=== PATIENT | female | born 1975 | race Caucasian/White ===

== ENCOUNTER 2017-03-08 15:30 | Emergency (ER) | payer SELFPAY ==
[~2017-03-08] VITALS: Ht 175.3 cm; Wt 180.0 kg
[2017-03-08 15:41] VITALS: BP 99/59; PULSE 107; RESP 16; O2SAT 98
[2017-03-08 16:22] LABS: BASOPHILS % (AUTO) 0.2 % (0-3); EOSINOPHILS % (AUTO) 0.3 % (0-5); MONOCYTES % (AUTO) 11.9 % (4-12); Mean Corpuscular Hemoglobin 28.9 pg (27.0-35.0); Mean Corpuscular Volume 86.4 fL (81-100); NEUTROPHILS % (AUTO) 78.6 % (40-74); Platelet Count 223 bil/L (150-400)
[2017-03-08 16:26] VITALS: BP 100/60; PULSE 98; RESP 22; O2SAT 98
[2017-03-08 16:41] LABS: Magnesium 1.7 mg/dL (1.6-2.6)
--- NOTE | 2017-03-08 16:50 | ED.REPORT ---
HPI-Abd Pain F 40 and Over Date of Service March 08, 2017 ED Provider: Iván Chaidez MD The patient is a 41 year old female who presents to the ED via EMS due to 3 days of right back pain. Associated symptoms include abdominal cramping, headache, fever, nausea, and chills. She denies vomiting. She took ibuprofen about 9 hrs ago. Pt is currently on her period. Nursing Notes Stated Complaint: HEADACHE,ABDOMINAL PAIN Chief Complaint: Female Abdominal Pain Nursing Notes Reviewed: Yes Allergies: Coded Allergies: Macrolide Antibiotics (Verified Allergy, Unknown, 07/02/14) Uncoded Allergies: EES 400 (Allergy, Unknown, 07/02/14) Scheduled Sulfamethoxazole/Trimeth 800-160 mg (Bactrim DS) 1 Each Tablet 1 TABLET PO BID General Time Seen by MD: 16:46 Chief Complaint Abdominal pain Hx Obtained From: Patient Arrived By: Ambulance Sudden in Onset?: Yes Onset Occurred: 3 days ago Symptom Duration: Since onset Location: : Back Quality: Painful Severity: Current: Moderate Recent Healthcare: No recent doctor visit, No recent hospitalization Similar Sx Previous: No Past Medical History Past Medical History denies Past Surgical History Reports: Cholecystectomy Smoking History Current Every Day Smoker Social History substance abuse Alcohol Use: 1-3 per week Other Social History: Local resident Ambulatory Status Independent Review of Systems Constitutional: Reports: Chills, Fever GI: Reports: Abdominal pain, Nausea, Denies: Vomiting Musculoskeletal: Reports: Back pain (right sided ) Complete sys rev & neg: except as marked. Neurologic: Reports: Headache Physical Exam Vital Signs Vital Signs (First) Date Time Temp Pulse Resp B/P Pulse Ox O2 Delivery O2 Flow Rate FiO2 03/08/17 15:41 36.9 107 16 99/59 98 Room Air Initial VS: Reviewed General/Constitutional: Awake, Alert, Cooperative Distress / Hydration: Positive: Distress mild Respiratory / Chest: Atraumatic, Breath sounds NL, No respiratory distress Cardiovascular: Regular rhythm, No gallop, No murmurs, No rubs Heart Rate / Rhythm: Positive: Tachycardia Tenderness/Guarding/Rebound: Positive: Tender RUQ... Head / Eyes: Normocephalic, PERRL Skin: Warm, Dry Upper Extremity / MS: Full range of motion, No deformity Lower Extremity / Pelvis / MS: Full range of motion, No deformity Interpretation & Diagnostics Interpretation & Diagnostics: U preg neg u tox amphetamines Lab Results Interpretation Result Diagram: 03/08/17 1607 03/08/17 1607 Test 03/08/17 16:07 03/08/17 17:50 White Blood Count 12.6th/mm3 (3.8-10.1) Red Blood Count 4.25mil/mm3 (3.90-5.20) Hemoglobin 12.3g/dL (12.0-15.6) Hematocrit 36.7% (35.0-46.0) Mean Corpuscular Volume 86.4fL (81-100) Mean Corpuscular Hemoglobin 28.9pg (27.0-35.0) Mean Corpuscular Hemoglobin Concent 33.5% (32.0-37.0) Red Cell Distribution Width 13.7% (12.3-15.4) Platelet Count 223bil/L (150-400) Neutrophils (%) (Auto) 78.6% (40-74) Lymphocytes (%) (Auto) 8.6% (14-46) Monocytes (%) (Auto) 11.9% (4-12) Eosinophils (%) (Auto) 0.3% (0-5) Basophils (%) (Auto) 0.2% (0-3) Sodium Level 133mEq/L (134-144) Potassium Level 3.4mEq/L (3.5-5.2) Chloride Level 98mEq/L (97-108) Carbon Dioxide Level 20mmol/L (18-29) Blood Urea Nitrogen 8mg/dL (6-24) Creatinine 0.73mg/dL (0.57-1.00) Estimat Glomerular Filtration Rate 125mL/min (>59) Glucose Level 118mg/dL (60-99) Lactic Acid Level 1.1mmol/L (0.4-2.0) Calcium Level 8.9mg/dL (8.5-10.1) Magnesium Level 1.7mg/dL (1.6-2.6) Total Bilirubin 0.9mg/dL (0.0-1.2) Aspartate Amino Transf (AST/SGOT) 86U/L (0-50) Alanine Aminotransferase (ALT/SGPT) 100U/L (0-32) Alkaline Phosphatase 169U/L (25-150) Total Protein 7.3g/dL (6.4-8.4) Albumin 2.9g/dL (3.4-5.0) Lipase 12U/L (13-60) Hold Law Top Tube Received (Received) Urine Color Yellow (YELLOW) Urine Appearance Hazy (CLEAR,HAZY) Urine pH 6.0 (5.0-8.0) Urine Specific [place] 1.010 (1.003-1.035) Urine Protein Tracemg/dL (NEG,TRACE) Urine Glucose (UA) Negativemg/dL (NEGATIVE) Urine Ketones Negativemg/dL (NEGATIVE) Urine Occult Blood Moderate (NEGATIVE) Urine Nitrite Negative (NEGATIVE) Urine Bilirubin Negative (NEGATIVE) Urine Urobilinogen Normalmg/dL (NORMAL) Urine Leukocyte Esterase Large (NEGATIVE) Urine RBC 3-10/hpf (0-2) Urine WBC >50/hpf (0-5) Urine Epithelial Cells Few/hpf (NONE-MOD) Urine Crystals None seen (NONE SEEN) Urine Bacteria Many/hpf (NONE-FEW) Urine Hyaline Casts None/lpf (NONE) Urine Granular Casts None seen (NONE SEEN) Urine Waxy Casts None seen (NONE SEEN) Urine Red Blood Cell Casts None seen (NONE SEEN) Urine White Blood Cell Casts None seen (NONE SEEN) Urine Mucus None seen (None Seen) Urine Trichomonas None seen (NONE SEEN) Urine Yeast None (NONE SEEN) Urinalysis Comment None Urine Culture Reflexed Indicated X-Ray Chest Interpretation Chest Xray Interpretation: IMPRESSION: Mild left lung base pneumonia. Dictated by: Javy Gomez M.D. on 03/08/2017 at 17:23 Approved by: Javy Gomez M.D. on 03/08/2017 at 17:23 View: Portable Interpretation / Wet Read by: Interpret - Radiologist CT Abd / Pelvis Interpretation IMPRESSION: 1. Multifocal right pyelonephritis. 2. Normal appendix. Dictated by: Javy Gomez M.D. on 03/08/2017 at 20:58 Approved by: Javy Gomez M.D. on 03/08/2017 at 21:00 Study type: Abdominal CT no contrast Interpretation / Wet Read by: Interpret - Radiologist Re-Eval/Medical Decision Re-Evaluation/Progress #1: Time of Eval: 20:06 Re-Evaluation/Progress Note: Pt rechecked. Chest x-ray shows pneumonia and UA shows UTI. Plan for CT scan and will start on antibiotics. Re-Evaluation/Progress #2: Time of Eval: 21:10 Re-Evaluation/Progress Note: Pt rechecked. Informed pt of diagnosis and plan for antibiotics and pain medication. Pt understands and agrees with plan. F/U and RTER warnings given. All questions addressed. Counseled Regarding: Diagnosis, Lab results, Need for follow-up, When/why to return to ED Discharge & Departure Primary Impression: Pyelonephritis Additional Impression: Pneumonia Pneumonia type: due to unspecified organism Laterality: unspecified laterality Lung location: unspecified part of lung Qualified Code: J18.9 - Pneumonia, unspecified organism Disposition: Home Discharge Condition All VS Reviewed: Yes Condition: Stable Patient Instructions: Urinary Tract Infection in Women (ED) Additional Instructions: Thank you for entrusting us with your care today. Emergency Department evaluation included interview, examination, chest x-ray, urine analysis, and CT scan. Your chest x-ray shows pneumonia and your urine analysis shows a urinary tract infection. You also have a right kidney infection. We have started you on antibiotics. supervisor contingents these prescriptions and start them as directed. I am sending you home with the antibiotic Bactrim. Take this 2x/day for 9 days. I am also giving you some pain and nausea medication. Follow up with the residency clinic in the next week. Do not hesitate to return to the Emergency Department for any new or worsening symptoms. I hope you feel better soon! Referrals: [facility] (PCP) [facility] Scrrita Attestation Portion of this note were transcribed by Maggi Eugene. I, , personally performed the history, physical exam, and medical decision-making: I reviewed and confirmed the accuracy for the information in the transcribed note. Signed by: karissa Vance, 03/08/17 1900 copies to: NOPKIMI; [facility] Iván Chaidez MD March 08, 2017 16:49 Maggi Eugene March 08, 2017 17:34
--- NOTE | 2017-03-08 17:25 | DRSVH ---
PROCEDURE: X-RAY CHEST ONE VIEW, PORTABLE ([id number]) INDICATIONS: fever cough TECHNIQUE: One view of the chest was acquired. COMPARISON: [facility], CR, CHEST 2VW, 11/15/2011, 23:50. FINDINGS: Surgical changes and devices: None. Lungs and pleura: No pleural effusions or pneumothorax. Mild patchy opacity at the left lung base. Mediastinum: Mediastinal contours appear normal. Heart size is normal. Bones and chest wall: No suspicious bony lesions. Overlying soft tissues appear unremarkable. IMPRESSION: Mild left lung base pneumonia. Dictated by: Javy Gomez M.D. on 03/08/2017 at 17:23 Approved by: Javy Gomez M.D. on 03/08/2017 at 17:23
[2017-03-08] MEDS ORDERED: 0.9% Sodium Chloride 1,000 ML IV ONE ×3 (17:35→20:10)
[2017-03-08 18:03] VITALS: BP 107/64; PULSE 94; RESP 20; O2SAT 98
[2017-03-08 18:44] LABS: APPEARANCE,URINE HAZY (CLEAR,HAZY); COLOR,URINE YELLOW (YELLOW); OCCULT BLOOD,URINE MODERATE (NEGATIVE); UROBILINOGEN,URINE NORMAL (NORMAL)
[2017-03-08] MEDS ORDERED: Ondansetron 2 mg/mL 2 mL Inj IVPUSH ONE (20:10)
[2017-03-08] MEDS ORDERED: HYDROmorphone 0.5 mg/0.5 mL iSecure Syringe IVPUSH PRN (20:10)
[2017-03-08] MEDS ORDERED: cefTRIAXone Inj 2,000 MG in Dextrose 5% Minibag Plus 50 ML IV ONE (20:15)
--- NOTE | 2017-03-08 21:01 | DRSVH ---
PROCEDURE: CT ABDOMEN AND PELVIS WITH CONTRAST ([id number]) INDICATIONS: ruq abd pain, fever S/P mitesh TECHNIQUE: After the administration of intravenous contrast, 5 mm thick sections acquired from the diaphragm to the symphysis. 5 mm coronal and sagittal reformats were acquired. For radiation dose reduction, the following was used: automated exposure control, adjustment of mA and/or kV according to patient esteban taylor COMPARISON: [facility], CT, ABD/PELVIS W/CON (PN), 07/02/2014, 4:02. FINDINGS: Image quality: Excellent. ABDOMEN: Lung bases: Lung bases are clear. Heart size is normal. Solid organs: Liver and spleen are normal in size and enhancement. Gallbladder is surgically absent . Biliary system is non dilated. Pancreas enhances normally. No adrenal nodules. There is mild rig ht renal enlargement. Multifocal patchy hypodensity throughout the right renal parenchyma is present. Moderate right perinephric fat stranding. No hydronephrosis. Left kidney is within normal limits. Peritoneum and bowel: Bowel loops demonstrate normal wall thickness and caliber. No free fluid or a ir. Normal appendix. Nodes and vessels: No retroperitoneal or mesenteric adenopathy by size criteria. Aorta and inferior vena cava are normal in size. Miscellaneous: No ventral hernias. PELVIS: Genitourinary: Bladder wall thickness is normal. Miscellaneous: No inguinal hernias or adenopathy. Bones: No suspicious bony lesions. No vertebral body compression fractures. IMPRESSION: 1. Multifocal right pyelonephritis. 2. Normal appendix. Dictated by: Javy Gomez M.D. on 03/08/2017 at 20:58 Approved by: Javy Gomez M.D. on 03/08/2017 at 21:00
[2017-03-08] MEDS ORDERED: _Ondansetron ODT 4 mg Tablet PO PRN (21:15)
[2017-03-08] MEDS ORDERED: _oxyCODONE/APAP 5-325 mg Tablet PO PRN (21:15)
[2017-03-08] MEDS ORDERED: SULF1TAB7 PO (21:18)
[2017-03-08 22:05] VITALS: BP 100/55; PULSE 107; RESP 26; O2SAT 97
== END 2017-03-08 22:06 | disposition home or self-care (01) ==
LOC: SED 15:30 → EDBD 15:30 → EDUNIT# 15:30 → SED 22:06
DX: N10 Acute pyelonephritis (principal); J18.9 Pneumonia, unspecified organism; B96.20 Unspecified Escherichia coli [E. coli] as the cause of diseases classified elsewhere; R51 Headache; F17.200 Nicotine dependence, unspecified, uncomplicated; Z88.1 Allergy status to other antibiotic agents
CPT/HCPCS: 36415; 71010; 74177; 80053; 81000; 81002; 81025; 83605; 83690; 83735; 85025; 87077; 87086; 87088; 87186; 96361; 96365; 96375; 99285; J0696; J1170; J2405; J7030; Q9967